=== PATIENT | male | born 1960 | race Caucasian/White ===

== ENCOUNTER 2016-08-24 19:49 | Observation (INO) | payer OTHER ==
[2016-08-24] MEDS ORDERED: ASPIRIN PO ONE (20:15)
[2016-08-24] MEDS ORDERED: ASPIRIN ONE (20:18)
[2016-08-24] MEDS ORDERED: NS 1000 ML 1,000 ML ONE (20:18)
[2016-08-24] MEDS ORDERED: ZOFRAN INJ 4 MG VIAL ONE (20:19)
--- NOTE | 2016-08-24 20:20 | DR.CP ---
HPI - Time Seen Time seen: 20:00 - PCP Primary Care Physician: TREADWELL - Complaint Chief Complaint Doctor Comments: Patient complains of xiphoid pain and tightness for the past two hours getting worst about 30 minutes ago when he was setting doen to eat. States he did not eat much because he was hurting. States he took Motrin x2 around 6pm for his bones because he has a problem with his bones and sees a logistics lead in [place]. States he smokes occasionaly about three cigarettes a day but denies alcohol or drugh usage. States the pain is 9 of 10. Chief Complaint:: PT STATES HE HAS TIGHTNESS IN CHEST THAT STARTED AROUND 1800. PT STATES THE NAUSEA JUST STARTED UPON ARRIVAL TO ED. Self Treatment fo Chief Complaint: IBUPROFEN, TRAMADOL - Reviewed Nurses Notes Review: Yes - Source History Provided: Patient - Mode of Arrival Mode of Arrival: Ambulatory - Timing Onset of Chief Complaint: 08/24/16 Came on: Suddenly Pain: Present Now - Duration Duration: Constant How lon Duration: Hours - Location Location of Chest Pain: Chest Chest Pain Radiation Location: None - Context Onset: At rest, With light exertion Cardiac Risk Factors: Smoker PE Risk Factors: None History of: None Prehospital Care: None - Quality Quality: Squeezing, Pressure like - Severity Severity: Severe - Modifying Factors Worsens: Exertion, Movement Impoves: Nothing - Associated Signs and Symptoms Associated Signs and Symptoms: Nausea/Vomiting PMH - PMH Past Medical History: Yes Past Medical History Comment: RIGHT ARM FX, HEART MURMER Past Surgical History: Yes Surgical History: Cholecystectomy, Ortho Surgery - Family History History of Family Medical Conditions: Yes Family Medical History: Diabetes Mellitus, Hypertension - Social History Alcohol Use: None Do you use any recreational Drugs:: No Lives With: Family Lives Where: Home - infectious screening In the last 2 months have you had wt loss of >10#?: NO Have you had fever, night sweats or hemotysis?: No Have you traveled outside the country in the last 6 months?: No Isolation: Standard ROS - Review of Systems Constitutional: No Symptoms Reported Eyes: No Symptoms Reported ENTM: No Symptoms Reported Respiratoy: No Symptoms Reported. negative: See HPI, Productive Cough, Non- Productive Cough, Moist Cough, Dry Cough, Hacking Cough, Barking Cough, Brassy Cough, Orthopnea, Short of Breath, Stridor, Wheezing, Hemoptysis, Other Cardiovascular: Chest Pain. negative: No Symptoms Reported, See HPI, Edema, Palpitations, Syncope, Cyanosis, Skin Mottling, Other Gastrointestinal/Abdominal: No Symptoms Reported, Nausea. negative: See HPI, Abdominal Pain, Constipation, Diarrhea, Vomiting, Food Intolerance, Other Genitourinary: No Symptoms Reported. negative: See HPI, Discharge, Dysuria, Frequency, Hematuria, Pain, Bleeding, Other Neurological: No Symptoms Reported, See HPI. negative: Anxiety, Depressed, Emotional Problems, Headache, Numbness, Paresthesia, Pre-existing Deficit, Seizure, Tingling, Tremors, Weakness, Dizziness, Problems Walking, Speech Problem, Other Musculoskeletal: No Symptoms Reported Integumentary: No Symptoms Reported Hematologic/Lymphatic: No Symptoms Reported Endocrine: No Symptoms Reported Psychiatric: No Symptoms Reported. negative: See HPI, Anxiety, Depression, Hallucinations, Excessive crying, Suicidal, Other PE - Vitals Vitals: Temperature 98.1 F Pulse Rate 58 Respiratory Rate 20 Blood Pressure 159/82 O2 Sat by Pulse Oximetry 99 - General Limitations: No Limitations General Appearance: Alert, In Distress (moderate) - Head Head Exam: Normal Inspection, Atraumatic, Normocephalic - Eyes Eye exam: Normal Appearance, PERRL, EOMI. negative: Scleral Icterus, Conjunctival Injection, Nystagmus, Miosis, Mydrasis, Periorbital Swelling, Periorbital Tenderness, Other - ENT ENT Exam: Normal Exam, Normal Oropharynx, Normal External Ear Exam, Mucous Membranes Moist, TM's Normal Bilaterally - Chest Chest Inspection: Normal Inspection, Symmetric Chest Wall Rise - Respiratory Respiratory Exam: Normal Lung Sounds Bilat Respiratory Exam: Bilateral Clear to Auscultation - Cardiovascular Cardiovascular Exam: Regular Rate, Normal Rhythm, Normal Heart Sounds Pulse: Normal. negative: Radial, Femoral, Left, Right, Absent, Weak, Irregular Edema: Normal - Abdominal Exam Abdominal Exam: Normal Inspection, Normal Bowel Sounds, Soft Abdominal Tenderness: negative: RUQ, RLQ, LUQ, LLQ, Epigastrium, Suprapubic, Diffuse, Mild, Moderate, Severe, Other - Extremities Extremities Exam: Normal Inspection, Full ROM, Normal Capillary Refill. negative: Tenderness, Edema, Joint Swelling, Calf Tenderness, Other - Back Back Exam: Normal Inspection, Full ROM - Neurologic Neurological Exam: Alert, Oriented X3, CN II-XII Intact, Reflexes Normal. negative: Normal Gait - Psychiatric Psychiatric Exam: Normal Affect, Normal Mood. negative: Depressed, Agitated, Anxious, Flat Affect, Manic, Homicidal Ideation, Suicidal Ideation, Other - Skin Skin Exam: Warm, Dry, Intact, Normal Color ROR - Labs Reviewed Laboratory Results Reviewed?: Yes (All labs and x-ray results reviewed and discussed with patient and family) Result Diagrams: 08/24/16 20:15 08/24/16 20:15 Laboratory: WBC 6.5 X10^3/uL (3.6-10.0) 08/24/16 20:15 RBC 4.83 X10^6/uL (4.7-6.0) 08/24/16 20:15 Hgb 13.9 g/dL (13.5-18.0) 08/24/16 20:15 Hct 40.6 % (42.0-54.0) L 08/24/16 20:15 MCV 84.2 fL (80.0-100.0) 08/24/16 20:15 MCH 28.8 pg (27.0-34.0) 08/24/16 20:15 MCHC 34.2 g/dL (33.0-35.0) 08/24/16 20:15 RDW 14.0 % (11.6-16.5) 08/24/16 20:15 Plt Count 249 X10^3/uL (150.0-450.0) 08/24/16 20:15 MPV 7.0 fL (7.4-11.0) L 08/24/16 20:15 Neut % 50.8 % (42.0-75.0) 08/24/16 20:15 Lymph % 25.9 % (21.0-51.0) 08/24/16 20:15 [place] % 12.2 % (0.0-13.0) 08/24/16 20:15 Eos % 9.6 % (0.9-2.9) H 08/24/16 20:15 Baso % 1.5 % (0.2-1.0) H 08/24/16 20:15 Neut # 3.3 x10^3/uL (2.2-4.8) 08/24/16 20:15 Lymph # 1.7 X10^3/uL (1.3-2.9) 08/24/16 20:15 [place] # 0.8 x10^3/uL (0.3-0.8) 08/24/16 20:15 Eos # 0.6 x10^3/uL (0.0-0.2) H 08/24/16 20:15 Baso # 0.1 X10^3/uL (0.0-0.1) 08/24/16 20:15 Absolute Nucleated RBC 0.1 /100WBC 08/24/16 20:15 INR Target Range - 08/24/16 20:15 INR 1.11 (0.8-1.3) 08/24/16 20:15 PTT 26.7 SECONDS (22.9-36.5) 08/24/16 20:15 PTT Comment - 08/24/16 20:15 D-Dimer 424 ng/mL (0-400) H* 08/24/16 20:15 Sodium 141 mmol/L (136-145) 08/24/16 20:15 Corrected Sodium TNP 08/24/16 20:15 Potassium 4.0 mmol/L (3.5-5.1) 08/24/16 20:15 Chloride 107 mmol/L (98-107) 08/24/16 20:15 Carbon Dioxide 22.4 mmol/L (21-32) 08/24/16 20:15 BUN 18 mg/dL (7-18) 08/24/16 20:15 Creatinine 1.19 mg/dL (0.70-1.30) 08/24/16 20:15 Est GFR (MDRD) Af Amer > 60 (>60) 08/24/16 20:15 Est GFR (MDRD) Non-Af > 60 (>60) 08/24/16 20:15 Glucose 96 mg/dL (65-99) 08/24/16 20:15 Calcium 8.4 mg/dL (8.5-10.1) L 08/24/16 20:15 Corrected Calcium TNP 08/24/16 20:15 Magnesium 1.9 mg/dL (1.7-2.9) 08/24/16 20:15 Total Bilirubin 0.30 mg/dL (0.2-1.0) 08/24/16 20:15 AST 25 Units/L (15-37) 08/24/16 20:15 ALT 27 Units/L (12-78) 08/24/16 20:15 Alkaline Phosphatase 64 Units/L (46-116) 08/24/16 20:15 Creatine Kinase 156 Units/L (39-308) 08/24/16 20:15 CK-MB (CK-2) 3.6 ng/mL (0-4.0) 08/24/16 20:15 CK/CKMB % Calc 2.3 % (<4) 08/24/16 20:15 Troponin I 0.02 ng/mL (0-1.5) 08/24/16 20:15 B-Natriuretic Peptide 88.9 pg/mL (0-79) H 08/24/16 20:15 Total Protein 6.9 g/dL (6.4-8.2) 08/24/16 20:15 Albumin 3.7 g/dL (3.4-5.0) 08/24/16 20:15 Globulin 3.2 g/dL (2.5-4.5) 08/24/16 20:15 Albumin/Globulin Ratio 1.2 Ratio (1.1-2.1) 08/24/16 20:15 - XRAY XRAY Interpreted by: Radiologist (CTA: No evidence of a pulmonary embolus. No mediastinal mass or adenopathy) - Diagnosis Discharge Problem: Chest pain, rule out acute myocardial infarction, Cardiomegaly, Congestive heart failure as early postoperative complication Hypertension Qualifiers: Hypertension type: essential hypertension Qualified Code(s): I10 - Essential ( primary) hypertension - Discharge Plan Disposition: ADMITTED INPATIENT Condition: Stable - Follow ups/Referrals Follow ups/Referrals: JOSE C TREADWELL [Primary Care Provider] - 3 days - Instructions
[2016-08-24] MEDS ORDERED: ZOFRAN INJ 4 MG VIAL IVP ONE (20:21)
[2016-08-24] MEDS: NS 1000 ML 1,000 ML IV SCH (20:22)
[2016-08-24] MEDS: NITROSTAT SL PRN ×2 (20:22→20:41)
[2016-08-24 20:31] LABS: BASOPHILS # (AUTO) 0.1 X10^3/uL (0.0-0.1); BASOPHILS % (AUTO) 1.5 % (0.2-1.0); EOSINOPHILS # (AUTO) 0.6 x10^3/uL (0.0-0.2); EOSINOPHILS % (AUTO) 9.6 % (0.9-2.9); HEMATOCRIT 40.6 % (42.0-54.0); HEMOGLOBIN 13.9 g/dL (13.5-18.0); LYMPHOCYTES # (AUTO) 1.7 X10^3/uL (1.3-2.9); LYMPHOCYTES % (AUTO) 25.9 % (21.0-51.0); MEAN CORPUSCULAR HEMOGLOBIN 28.8 pg (27.0-34.0); MEAN CORPUSCULAR HGB CONC 34.2 g/dL (33.0-35.0); MEAN CORPUSCULAR VOLUME 84.2 fL (80.0-100.0); MONOCYTES # (AUTO) 0.8 x10^3/uL (0.3-0.8); MONOCYTES % (AUTO) 12.2 % (0.0-13.0); NEUTROPHILS # (AUTO) 3.3 x10^3/uL (2.2-4.8); NEUTROPHILS % (AUTO) 50.8 % (42.0-75.0); PLATELET COUNT 249 X10^3/uL (150.0-450.0); RED BLOOD COUNT 4.83 X10^6/uL (4.7-6.0); WHITE BLOOD COUNT 6.5 X10^3/uL (3.6-10.0)
--- NOTE | 2016-08-24 20:52 | RAD ---
EXAM: Chest X-ray INDICATION: Chest pain COMPARISION: No prior TECHNIQUE: Single view FINDINGS: No focal lung parenchymal abnormality identified. No pleural effusion or pneumothorax. The cardiac s ilhouette is mildly enlarged and there central vascular congestion. The regional skeleton is intact . IMPRESSION: There is mild cardiomegaly and central vascular congestion. Reported By:
[2016-08-24 21:22] LABS: BLOOD UREA NITROGEN 18 mg/dL (7-18); CALCIUM 8.4 mg/dL (8.5-10.1); CARBON DIOXIDE 22.4 mmol/L (21-32); CHLORIDE 107 mmol/L (98-107); CREATININE 1.19 mg/dL (0.70-1.30); GLUCOSE 96 mg/dL (65-99); SODIUM 141 mmol/L (136-145); TROPONIN I 0.02 ng/mL (0-1.5); eGFR BLACK RACES > 60 (>60); eGFR NON BLACK RACES > 60 (>60)
[2016-08-24 21:25] LABS: ALANINE AMINOTRANSFERASE 27 Units/L (12-78); ALBUMIN 3.7 g/dL (3.4-5.0); ALKALINE PHOSPHATASE 64 Units/L (46-116); ASPARTATE AMINO TRANSFERASE 25 Units/L (15-37); CKMB % 2.3 % (<4); CREATINE KINASE 156 Units/L (39-308); CREATINE KINASE MB 3.6 ng/mL (0-4.0); MAGNESIUM 1.9 mg/dL (1.7-2.9); TOTAL PROTEIN 6.9 g/dL (6.4-8.2)
[2016-08-24 21:30] LABS: D DIMER 424 ng/mL (0-400)
[2016-08-24] MEDS ORDERED: NS 100 ML IV 100 ML IV ONE (22:11)
--- NOTE | 2016-08-24 22:51 | CT ---
HISTORY: Chest pain Study: CTA with contrast Comparison: none Technique: Multiple axial images of the chest were obtained from the thoracic inlet to the upper abd omen after the administration of IV contrast. Findings: The aorta is normal caliber with no filling defect. The pulmonary arteries are well opacified with n o filling defects seen. There is no vessel cut off. No mediastinal mass or adenopathy is seen. The a drenals are normal and the visualized upper abdomen is unremarkable. The gallbladder has been remove d. The visualized upper abdomen is otherwise unremarkable. There is mild dependent atelectasis along the lung bases posteriorly. No consolidation or effusion is seen and there is no pulmonary nodule o r mass. There is moderate degenerative changes throughout the spine with associated moderate scolios is. IMPRESSION: No evidence of a pulmonary embolus . No mediastinal mass or adenopathy. Mild bibasilar atelectasis or scarring posteriorly. Status post cholecystectomy. Moderate degenerative changes in the spine and associated scoliosis with no aggressive osseous lesio n. Reported By:
[2016-08-25 02:38] LABS: CHOL/HDL RATIO 4.2 (0.0-5.0)
[2016-08-25 02:51] LABS: CKMB % 2.2 % (<4); CREATINE KINASE MB 2.9 ng/mL (0-4.0); TROPONIN I 0.02 ng/mL (0-1.5)
[2016-08-25 08:53] LABS: CKMB % 2.3 % (<4); CREATINE KINASE 101 Units/L (39-308); CREATINE KINASE MB 2.3 ng/mL (0-4.0); TROPONIN I < 0.02 ng/mL (0-1.5)
[2016-08-25] MEDS: ULTRAM PO PRN ×2 (11:15→19:35)
[2016-08-25] MEDS: ARIMIDEX PO SCH (11:16)
[2016-08-25] MEDS: [UNRECOGNIZED DRUG - OTHER] PO SCH (12:29)
[2016-08-25] MEDS: NITROSTAT SL PRN (12:30)
[2016-08-25] MEDS: NS 1000 ML 1,000 ML IV SCH ×2 (12:31→18:50)
[2016-08-25 14:59] LABS: CKMB % 2.1 % (<4); CREATINE KINASE MB 2.2 ng/mL (0-4.0); TROPONIN I 0.02 ng/mL (0-1.5)
[2016-08-26 05:09] LABS: ALANINE AMINOTRANSFERASE 25 Units/L (12-78); ALBUMIN 3.2 g/dL (3.4-5.0); ALKALINE PHOSPHATASE 59 Units/L (46-116); ASPARTATE AMINO TRANSFERASE 23 Units/L (15-37); BLOOD UREA NITROGEN 15 mg/dL (7-18); CALCIUM 8.1 mg/dL (8.5-10.1); CARBON DIOXIDE 24.6 mmol/L (21-32); CHLORIDE 110 mmol/L (98-107); COR CA(FOR HYPOALB) 8.7 mg/dL (8.5-10.1); CREATININE 1.04 mg/dL (0.70-1.30); GLUCOSE 84 mg/dL (65-99); SODIUM 142 mmol/L (136-145); TOTAL PROTEIN 6.5 g/dL (6.4-8.2); eGFR BLACK RACES > 60 (>60); eGFR NON BLACK RACES > 60 (>60)
[2016-08-26 05:10] LABS: BASOPHILS # (AUTO) 0.1 X10^3/uL (0.0-0.1); BASOPHILS % (AUTO) 0.9 % (0.2-1.0); EOSINOPHILS # (AUTO) 0.5 x10^3/uL (0.0-0.2); EOSINOPHILS % (AUTO) 7.9 % (0.9-2.9); HEMATOCRIT 41.3 % (42.0-54.0); HEMOGLOBIN 14.1 g/dL (13.5-18.0); LYMPHOCYTES # (AUTO) 1.4 X10^3/uL (1.3-2.9); LYMPHOCYTES % (AUTO) 22.5 % (21.0-51.0); MEAN CORPUSCULAR HEMOGLOBIN 29.1 pg (27.0-34.0); MEAN CORPUSCULAR HGB CONC 34.2 g/dL (33.0-35.0); MEAN PLATELET VOLUME 7.7 fL (7.4-11.0); MONOCYTES # (AUTO) 0.6 x10^3/uL (0.3-0.8); MONOCYTES % (AUTO) 9.4 % (0.0-13.0); NEUTROPHILS # (AUTO) 3.7 x10^3/uL (2.2-4.8); NEUTROPHILS % (AUTO) 59.3 % (42.0-75.0); PLATELET COUNT 242 X10^3/uL (150.0-450.0); RED BLOOD COUNT 4.86 X10^6/uL (4.7-6.0); WHITE BLOOD COUNT 6.2 X10^3/uL (3.6-10.0)
[2016-08-26] MEDS: NS 1000 ML 1,000 ML IV SCH ×3 (06:19→14:21)
[2016-08-26] MEDS: ULTRAM PO PRN ×2 (07:17→17:07)
[2016-08-26] MEDS: [UNRECOGNIZED DRUG - OTHER] PO SCH (09:05)
[2016-08-26] MEDS: ARIMIDEX PO SCH (09:08)
--- NOTE | 2016-08-26 10:14 | DR.H&P ---
H&P - History & Physical for Day of: H&P Date: 08/24/16 - Chief Complaint Chief Complaint: chest pain - Allergies Allergies/Adverse Reactions: Allergies Allergy/AdvReac Type Severity Reaction Status Date / Time Hydromorphone [From Dilaudid] Allergy Verified 08/24/16 19:56 Meperidine [From Demerol HCl] Allergy Verified 08/24/16 19:56 - History of Present Illness History of Present Illness: The patient is a 56-year-old white male who presented to the [facility] emergency room complaining of substernal chest pain intermittently. Patient's initial EKG revealed normal sinus rhythm with STT wave changes suggestive of inferior ischemia. The patient's initial cardiac enzymes negative. The normal limits. The patient subsequently admitted for outpatient observation for further workup - Past Medical History Additional Medical History: 1. Chronic nonhealing right humerus fracture; status post multiple previous orthopedic surgeries - Past Surgical History Surgical History: Cholecystectomy, Ortho Surgery - Family History Family Medical History: Diabetes Mellitus, Hypertension - Social History Does patient currently use any type of tobacco product: Yes Have you used tobacco products in the last 12 months: Yes Type of Tobacco Use: Cigarettes Does any household member use tobacco: No Alcohol Use: None Drug Use: None - Medications Home Medications: Anastrozole [Arimidex] 1 mg PO DAILY 08/25/16 [History Confirmed 08/25/16] Cholecalciferol [Vitamin D] 5,000 units PO DAILY 08/25/16 [History Confirmed 07/12] Estradiol [Estrace] 1 mg PO DAILY 08/25/16 [History Confirmed 08/25/16] Tramadol HCl [Tramadol HCl] 2 tab PO TID 08/25/16 [History Confirmed 08/25/16] - Review of Systems Constitutional: No Symptoms Reported Eyes: No Symptoms Reported ENT: No Symptoms Reported Respiratory: No Symptoms Reported Cardiovascular: Chest Pain Gastrointestinal: No Symptoms Reported Genitourinary: No Symptoms Reported Musculoskeletal: See HPI Skin: No Symptoms Reported Neurological: No Symptoms Reported - Physical Exam Vital Signs: Temperature 98.3 F Pulse Rate [Left Brachial] 60 Pulse Rate [Apical] 61 Respiratory Rate 20 Blood Pressure [Left Arm] 186/77 O2 Sat by Pulse Oximetry 94 Oriented: Normal Eyes: Normal Nose: Normal Throat: Normal Respiratory: Clear Throughout Cardiovascular: Normal : Normal Auscultation: Bowel Sounds: Normal Palpation: Normal Tenderness: Normal Skin: Normal Musculoskeletal: Normal, Right, Arm (chronic nonhealing right humerus fracture) Psychiatric: Normal Mood Description: Calm Affect: Normal Speech Pattern: Clear - Assessment/Plan (1) Chest pain, rule out acute myocardial infarction Status: Acute Plan: 1. Admit for further workup. 2. Telemetry. 3. O2 at 2 L/m per nasal cannula. 4. Chest x-ray. 5. CMP and CBC. 6. UA C&S. 7. EKG every 3 hours 3 then every morning 2. 8. Troponin every 3 hours 3. 9. Continue home medications. 10. For further orders see chart
[2016-08-26] MEDS ORDERED: VITAMIN D3 PO SCH (12:30)
[2016-08-26 16:02] VITALS: BP 141/81
== END 2016-08-26 17:40 | disposition short-term general hospital (02) ==
LOC: ER 19:49 → MED/SURG 23:35
PROVIDERS: ADMIT Internal Medicine; ATTEND Internal Medicine
DX: R07.2 Precordial pain (principal); I10 Essential (primary) hypertension; R94.31 Abnormal electrocardiogram [ECG] [EKG]; I51.7 Cardiomegaly; I50.9 Heart failure, unspecified; R94.30 Abnormal result of cardiovascular function study, unspecified
CPT/HCPCS: 36415; 71010; 71275; 80053; 80061; 82550; 82553; 83735; 83880; 84484; 85025; 85378; 85610; 85730; 93005; 93010; 94760; 96365; 96367; 96374; 99284; A4222; S0170; G0378; J2405